=== PATIENT | female | born 1965 | race Caucasian/White ===

== ENCOUNTER 2025-01-17 08:00 | Outpatient (CLI) | payer BC ==
[2025-01-17 09:46] LABS: #Basophils 0.09 10x3/uL (0.0-0.2); #Eosinophils 0.30 10x3/uL (0.0-0.5); #Monocytes 0.43 10x3/uL (0.0-1.1); #Neutrophils 3.63 10x3/uL (1.5-8.4); %Basophils 1.2 % (0.0-2.0); %Eosinophils 4.0 % (0.0-6.0); %Lymphocytes 41.0 % (18.0-47.0); %Monocytes 5.7 % (0.0-10.0); %Neutrophils 48.0 % (40.0-75.0); Hematocrit 40.9 % (34.9-44.5); Hemoglobin 13.1 g/dL (12.0-15.5); Mean Corpuscular Hemoglobin 29.6 pg (27.0-33.0); Mean Corpuscular Volume 92.3 fL (81.6-98.3); Platelet Count 351 10x3/uL (150-450); Red Blood Cell (RBC) Count 4.43 10x6/uL (3.90-5.03); White Blood Cell (WBC) Count 7.56 10x3/uL (3.5-10.5)
== END 2025-01-17 13:55 | disposition home or self-care (01) ==
LOC: CSHLAB 08:00
PROVIDERS: ATTEND Surgery
DX: Z01.812 Encounter for preprocedural laboratory examination (principal); K43.2 Incisional hernia without obstruction or gangrene
CPT/HCPCS: 85025

== ENCOUNTER 2025-01-21 06:59 | Day surgery (SDC) | payer BC ==
[2025-01-17 09:10] VITALS: BMI 26.7
[2025-01-21] MEDS ORDERED: PROPOFOL 20 ML ONE (07:07)
[2025-01-21] MEDS ORDERED: Rocuronium Bromide 10 MG/ML (10ML VIAL) ONE (07:08)
[2025-01-21] MEDS ORDERED: Lidocaine 1% PF 5 ML VIAL ONE (07:08)
[2025-01-21] MEDS ORDERED: Lidocaine 4% PF 5 ML AMP ONE (07:11)
[2025-01-21] MEDS ORDERED: CEFAZOLIN 2 GM VIAL ONE (07:16)
[2025-01-21] MEDS ORDERED: Bupivacaine/Epinephrine 0.25% 30 ML VIAL ONE (07:17)
[2025-01-21] MEDS ORDERED: LevoFLOXacin D5W 500 mg (100 mL) BAG ONE (07:24)
[2025-01-21] MEDS ORDERED: Dextrose 50% Abboject 50 ML SYRINGE ONE (08:03)
[2025-01-21] MEDS ORDERED: KETAMINE 100 MG/ML (5ML VIAL) ONE (08:15)
[2025-01-21] MEDS ORDERED: Ondansetron PF 4 MG/2 ML Vial ONE (09:38)
[2025-01-21] MEDS ORDERED: PHENYLEPHRINE-NS 100 MCG/ML 10 ML SYRINGE ONE (09:38)
[2025-01-21] MEDS ORDERED: SUGAMMADEX SODIUM 200 MG/2 ML VIAL ONE (09:38)
[2025-01-21] MEDS ORDERED: Ketorolac Tromethamine 30 MG (1 mL) VIAL ONE (09:38)
[2025-01-21] MEDS ORDERED: HYDROcodone/Acetaminophen 5/325 mg Tablet ONE (10:40)
== END 2025-01-21 10:50 | disposition home or self-care (01) ==
LOC: CSHSDC 06:59
PROVIDERS: ATTEND Surgery
PROC: 0WUF4JZ Supplement Abdominal Wall with Synthetic Substitute, Percutaneous Endoscopic Approach (ICD-10-PCS; principal; 2025-01-21)
DX: K43.9 Ventral hernia without obstruction or gangrene (principal); E11.9 Type 2 diabetes mellitus without complications; Z86.73 Personal history of transient ischemic attack (TIA), and cerebral infarction without residual deficits; Z91.013 Allergy to seafood; Z88.8 Allergy status to other drugs, medicaments and biological substances; Z91.018 Allergy to other foods
CPT/HCPCS: 36416; C1781; J1885; J1956; J2250; J2405; J2704; J3010; J7999; S2900